=== PATIENT | male | born 1985 | race African-American/Black ===

== ENCOUNTER 2024-04-06 20:28 | Emergency (ER) | payer OTHER ==
--- NOTE | 2024-04-06 21:17 | EDPHYS ---
Physician Documentation [facility] [place] Name: Vikram Logan Age: 38 yrs Sex: Male : 1985 Arrival Date: 04/06/2024 Time: 20:28 Bed 7 Private MD: ED Physician Ambrose Sun HPI: 04/06 21:49 This 38 yrs old Black Male presents to ER via Ambulatory with complaints of Rash, RASH dr5 ON BREAST AREA AND GOES UNDER ARM AND IS PAINFUL. 21:49 The patient's rash thought to be caused by chicken pox. The rash is located on the dr5 chest and right lateral posterior chest. The rash can be described as raised, vesicular. 21:49 Patient is a 38-year-old male with no past medical history coming in with rash to right dr5 chest radiating to right flank. Patient states that he had muscle pain prior to rash popping up. Patient reports having chickenpox as a child.. Historical: - Allergies: 20:54 No Known Allergies; jj7 - PMHx: 20:54 None; jj7 - PSHx: 20:54 None; jj7 - Immunization history:: Adult Immunizations not immunized, Flu vaccine is not up to date. - Infectious Disease History:: Denies. - Social history:: Smoking status: Reported history of juuling and/or vaping. Patient denies any tobacco usage or history of. Patient uses alcohol, Patient/guardian denies using street drugs, IV drugs. ROS: 21:49 Constitutional: as per hpi dr5 22:11 Constitutional: as per hpi dr5 Exam: 22:11 Constitutional: This is a well developed, well nourished patient who is awake, alert, dr5 and in no acute distress. Head/Face: Normocephalic, atraumatic. Eyes: Pupils equal round and reactive to light, extra-ocular motions intact. Lids and lashes normal. Conjunctiva and sclera are non-icteric and not injected. Cornea within normal limits. Periorbital areas with no swelling, redness, or edema. Chest/axilla: Normal chest wall appearance and motion. Nontender with no deformity. No lesions are appreciated. Cardiovascular: Regular rate and rhythm with a normal S1 and S2. Normal PMI, no JVD. No pulse deficits. Respiratory: Lungs have equal breath sounds bilaterally, clear to auscultation. No rales, rhonchi or wheezes noted. No increased work of breathing, no retractions or nasal flaring. Back: No spinal tenderness. No costovertebral tenderness. Full range of motion. 22:11 Skin: lesion(s), noted, and can be described as Vesicular, located on the chest and right lateral posterior chest, 22:11 Neuro: Exam negative for acute changes, Orientation: is normal, Vital Signs: 20:45 BP 140 / 92; Pulse 109; Resp 20; Temp 98.3; Pulse Ox 100% ; Weight 79.38 kg; Height 6 jj7 ft. 0 in. ; Pain 10/10; 20:45 Body Mass Index 23.73 (79.38 kg, 182.88 cm) [facility] 20:45 Pain Scale: Adult j7 [place] Coma Score: 21:05 Eye Response: spontaneous(4). Motor Response: obeys commands(6). Verbal Response: bm8 oriented(5). Total: 15. MDM: 20:43 Medical Screening Exam initiated dr5 22:11 Differential diagnosis: impetigo, varicella, allergic reaction. Data reviewed: vital dr5 signs, nurses notes. Care significantly affected by the following Social Determinants of Health: Poor access to healthcare and/or lack of insurance, Poor access to transportation. Counseling: I had a detailed discussion with the patient and/or guardian regarding the historical points, exam findings, and any diagnostic results supporting the discharge/admit diagnosis, the presence of at least one elevated blood pressure reading (>120/80) during this emergency department visit, the need for outpatient follow up, for definitive care, a family practitioner, to return to the emergency department if symptoms worsen or persist or if there are any questions or concerns that arise at home. ED course: . Administered Medications: No medications were administered Disposition Summary: 04/06/24 21:17 Discharge Ordered Notes: Location: Home dr5 Condition: Stable dr5 Diagnosis - Zoster without complications dr5 Followup: dr5 - With: Emergency Department - When: As needed - Reason: Worsening of condition Followup: dr5 - With: Private Physician - When: 1 - 2 days - Reason: Recheck today's complaints, Continuance of care, Re-evaluation by your physician Discharge Instructions: - Discharge Summary Sheet dr5 - Shingles dr5 Forms: - Medication Reconciliation Form dr5 - Antibiotic Education dr5 - Patient Portal Instructions dr5 - Leadership Thank You Letter dr5 Prescriptions: - gabapentin 300 mg Oral capsule - take 3 capsule ORAL route every 6 to 8 hours As needed; 30 capsule; Refills: 0, dr5 Product Selection Permitted - valacyclovir 1 gram Oral tablet - take 1 tablet ORAL route 3 times per day for 7 days; 21 tablet; Refills: 0, dr5 Product Selection Permitted - Prednisone 20 mg Oral Tablet - take 2 tablets ORAL route once daily for 5 days; 10 tablet; Refills: 0, Product dr5 Selection Permitted Addendum: 04/10/2024 09:43 I was immediately available for consultation during this patient's visit. I did not e c2 personally see the patient or discuss the patient with the TRICIA. . Signatures: Yani Fleming RN RN jj7 Ambrose Sun MD MD ec2 Andrzej Quezada, ROOFER APPRENTICE-C ROOFER APPRENTICE-Cdr5
--- NOTE | 2024-04-06 21:17 | ER ---
Nurse's Notes [facility] [place] Name: Vikram Logan Age: 38 yrs Sex: Male : 1985 Arrival Date: 04/06/2024 Time: 20:28 Bed 7 Private MD: Diagnosis: Zoster without complications Presentation: 04/06 20:45 Chief complaint: Patient states: RASH TO RIGHT SIDE OF CHEST. STARTED 3 DAYS AGO. jj7 Coronavirus screen: At this time, the client does not indicate any symptoms associated with coronavirus-19. Ebola Screen: No symptoms or risks identified at this time. Initial Sepsis Screen: Does the patient meet any 2 criteria? HR > 90 bpm. Yes Does the patient have a suspected source of infection? No. Patient's initial sepsis screen is negative. Risk Assessment: Do you want to hurt yourself or someone else? Patient reports no desire to harm self or others. Onset of symptoms was April 03, 2024. 20:45 Method Of Arrival: Ambulatory [facility] 20:45 Acuity: MIC 3 jj7 Triage Assessment: 20:54 General: Appears in no apparent distress. uncomfortable, Behavior is calm, cooperative, jj7 appropriate for age. Pain: Complains of pain in RIGHT SIDE OF CHEST. Derm: Rash noted that is papular, raised, on right lateral anterior chest and right lateral posterior chest. Historical: - Allergies: 20:54 No Known Allergies; jj7 - PMHx: 20:54 None; jj7 - PSHx: 20:54 None; jj7 - Immunization history:: Adult Immunizations not immunized, Flu vaccine is not up to date. - Infectious Disease History:: Denies. - Social history:: Smoking status: Reported history of juuling and/or vaping. Patient denies any tobacco usage or history of. Patient uses alcohol, Patient/guardian denies using street drugs, IV drugs. Screenin:05 [facility] ED Fall Risk Assessment (Adult) History of falling in the last 3 months, bm8 including since admission No falls in past 3 months (0 pts) Confusion or Disorientation No (0 pts) Intoxicated or Sedated No (0 pts) Impaired Gait No (0 pts) Mobility Assist Device Used No (0 pt) Altered Elimination No (0 pt) Score/Fall Risk Level 0 - 2 = Low Risk Oriented to surroundings, Maintained a safe environment, Educated pt \T\ family on fall prevention, incl call for assistance when getting out of bed, Assessed \T\ reinforced patient's understanding of fall precautions, Hourly rounding (assess needs \T\ fall precautionary measures) done, Used ambulatory aids as needed (educated on \T\ assisted with), Used gait belt as appropriate. Abuse screen: Denies threats or abuse. Nutritional screening: No deficits noted. Tuberculosis screening: No symptoms or risk factors identified. Assessment: 21:05 Reassessment: Patient appears in no apparent distress at this time. General: Appears in bm8 no apparent distress. comfortable, Behavior is calm, cooperative, appropriate for age. Pain: Complains of pain in right lateral posterior chest and right lateral anterior chest Pain currently is 8 out of 10 on a pain scale. Quality of pain is described as dull, sharp, shooting. Cardiovascular: Denies chest pain, Capillary refill < 3 seconds in bilateral fingers Patient's skin is warm and dry. Respiratory: Airway is patent Trachea midline Respiratory effort is even, unlabored, Respiratory pattern is regular, symmetrical. GI: No signs and/or symptoms were reported involving the gastrointestinal system. : No signs and/or symptoms were reported regarding the genitourinary system. EENT: No signs and/or symptoms were reported regarding the EENT system. Derm: Rash noted that is papular, red, raised, small blister like in appearance. Musculoskeletal: No signs and/or symptoms reported regarding the musculoskeletal system. Vital Signs: 20:45 BP 140 / 92; Pulse 109; Resp 20; Temp 98.3; Pulse Ox 100% ; Weight 79.38 kg; Height 6 jj7 ft. 0 in. ; Pain 10/10; 20:45 Body Mass Index 23.73 (79.38 kg, 182.88 cm) jj7 20:45 Pain Scale: Adult jj7 [place] Coma Score: 21:05 Eye Response: spontaneous(4). Motor Response: obeys commands(6). Verbal Response: bm8 oriented(5). Total: 15. ED Course: 20:36 Patient arrived in ED. gm2 20:41 Andrzej Quezada FNP-C [facility] 20:41 Ambrose Sun MD is Attending Physician. dr5 20:54 Triage completed. jj7 20:54 Arm band placed on left wrist. jj7 21:05 Adriano Roa, RN is Primary Nurse. bm8 21:05 Patient has correct armband on for positive identification. Bed in low position. Side bm8 rails up X 1. Client placed on continuous cardiac and pulse oximetry monitoring. NIBP monitoring applied. cardiac monitor technician on. Pulse ox on. NIBP on. Door closed. Noise minimized. Warm blanket given. Pillow given. Verbal reassurance given. Head of bed elevated. 21:05 No provider procedures requiring assistance completed. Patient did not have IV access bm8 during this emergency room visit. Patient maintains SpO2 saturation greater than 95% on room air. 21:23 Provided Education on: post er care. bm8 Administered Medications: No medications were administered Medication: 21:05 VIS not applicable for this client. bm8 Outcome: 21:17 Discharge ordered by . dr5 21:23 Discharged to home ambulatory, bm8 21:23 Condition: stable 21:23 Discharge instructions given to patient, family, Instructed on discharge instructions, follow up and referral plans. no drinking with medication, no driving heavy equipment, medication usage, safety practices, Demonstrated understanding of instructions, follow-up care, medications, Prescriptions given X 3, 21:23 Patient left the ED. bm8 Signatures: Yani Fleming RN RN Mary Lomas 2 Adriano Roa, RN RN bm8 Andrzej Quezada, GROVE WORKER-C GROVE WORKER-Cdr5
[2024-04-07 02:45] VITALS: BP 140/92; TEMP 98.3; O2SAT 100
== END 2024-04-06 21:23 | disposition home or self-care (01) ==
LOC: ER 20:28
DX: B02.9 Zoster without complications (principal)
CPT/HCPCS: 99284